=== PATIENT | male | born 1985 | race American Indian/Alaskan Native ===

== ENCOUNTER 2017-10-26 18:02 | Emergency (ER) | payer SELFPAY ==
[2017-10-26 20:10] LABS: Basophils % (Auto) 0.4 % (0.0-1.8); Eosinophils % (Auto) 0.1 % (0.0-4.3); Hematocrit 43.3 % (35.5-45.6); Hemoglobin 13.7 gm/dl (11.8-15.2); Lymphocytes # (Auto) 0.6 K/mm3 (1.2-5.4); Lymphocytes % (Auto) 7.6 % (13.4-35.0); Mean Corpuscular HGB Conc 32 % (32-34); Mean Corpuscular Volume 74 fl (84-94); Monocytes # (Auto) 0.4 K/mm3 (0.0-0.8); Monocytes % (Auto) 4.7 % (0.0-7.3); Platelet Count 213 K/mm3 (140-440); Red Blood Count 5.87 M/mm3 (3.65-5.03); Red Cell Distribution Width 14.9 % (13.2-15.2)
[2017-10-26 20:11] LABS: Mean Corpuscular Hemoglobin 23 pg (28-32)
[2017-10-26 20:27] LABS: Alanine Aminotransferase 27 units/L (7-56); Albumin 3.5 g/dL (3.9-5); BUN/Creatinine Ratio 7; Blood Urea Nitrogen 6 mg/dL (9-20); Calcium 8.4 mg/dL (8.4-10.2); Hemolysis Index 9; Lipase 17 units/L (13-60)
--- NOTE | 2017-10-26 22:34 | Ultrasound Report ---
FINAL REPORT EXAM: US TESTICULAR DOPPLER COMP HISTORY: swelling TECHNIQUE: Ultrasound scrotum PRIORS: None. FINDINGS: Right chest poles 4.5 x 2.3 x 5.4 centimeters Left testicle is 4.4 x 2.3 x 2.8 centimeters There is normal testicular echotexture. Pulsed and color Doppler evaluation there is normal flow and waveform There is no evidence for epididymal enlargement or hyperemia bilaterally There is a small right hydrocele measuring 5.5 x 1.1 x 1.0 centimeters IMPRESSION: Small right hydrocele
[2017-10-27] MEDS ORDERED: XOPENEX IH ONE (00:34)
[2017-10-27] MEDS ORDERED: ATROVENT IH ONE (00:34)
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
--- NOTE | 2017-10-27 00:58 | XRay Report ---
FINAL REPORT EXAM: XR CHEST ROUTINE 2V HISTORY: cough TECHNIQUE: PA and lateral views of the chest were submitted. FINDINGS: The heart size and mediastinum appear normal. The lungs are clear. Pleural fluid is not seen. The bones and soft tissues appear normal. IMPRESSION: Normal chest.
[2017-10-27 01:43] LABS: Bilirubin,Urine NEG (Negative); Blood,Urine NEG (Negative); Color,Urine Yellow (Yellow); Mucus,Urine FEW /HPF; Nitrite,Urine NEG (Negative); Protein,Urine <15 mg/dL mg/dL (Negative); Urobilinogen,Urine < 2.0 mg/dL (<2.0); WBC,Urine < 1.0 /HPF (0.0-6.0)
[2017-10-27] MEDS ORDERED: MOTRIN ONE (02:20)
[2017-10-27] MEDS ORDERED: MOTRIN PO ONE (02:32)
[2017-10-27 02:39] VITALS: BP 138/88
== END 2017-10-27 02:40 | disposition home or self-care (01) ==
LOC: ED 18:02
DX: R06.02 Shortness of breath (principal); R05 Cough; M79.1 Myalgia; I10 Essential (primary) hypertension; F17.200 Nicotine dependence, unspecified, uncomplicated; F12.10 Cannabis abuse, uncomplicated
CPT/HCPCS: 36415; 71046; 80053; 81001; 83690; 85025; 93975; 94640; 99284